=== PATIENT | female | born 1950 | race Caucasian/White ===

== ENCOUNTER 2016-05-24 11:03 | Emergency (ER) | payer MEDICARE, OTHER ==
[2016-05-24 11:59] LABS: HEMOGLOBIN 13.2 gm/dl (12.3-15.3); RED BLOOD COUNT 4.25 M/UL (4.00-5.10); WHITE BLOOD COUNT 10.2 K/UL (4.5-11.0)
[2016-05-24 12:20] LABS: BUN/CREATININE RATIO 40 (0-10)
[2016-09-11] MEDS ORDERED: LIPITOR TAB 2020 MG PO (08:55)
[2016-09-11] MEDS ORDERED: NORVASC 5 MG TAB5 MG PO (08:55)
[2016-09-11] MEDS ORDERED: CLARITIN10 M2 PO (08:56)
[2016-09-11] MEDS ORDERED: GABAPENTIN800 MG PO (08:57)
[2016-09-11] MEDS ORDERED: LISINOPRIL20 MG PO (08:57)
[2016-09-11] MEDS ORDERED: METFORMIN HCL500 MG PO (08:58)
[2016-09-11] MEDS ORDERED: PROBIOTIC1 EAC1 PO (08:59)
[2016-09-11] MEDS ORDERED: OMEPRAZOLE20 M1 PO (08:59)
[2016-09-11] MEDS ORDERED: RANITIDINE HCL300 MG PO (09:00)
[2016-09-11] MEDS ORDERED: ZOLOFT100 MG PO (09:02)
[2016-09-11] MEDS ORDERED: SERTRALINE HCL100 MG PO (09:07)
[2016-09-12] MEDS ORDERED: LEVAQUIN500 MG PO (04:29)
[2016-09-12] MEDS ORDERED: LORTAB 5-325 M1 EACH PO (04:30)
[2016-10-29] MEDS ORDERED: MELOXICAM15 MG PO (08:19)
[2016-10-29] MEDS ORDERED: LINZESS145 MCG PO (08:19)
[2016-10-29] MEDS ORDERED: OMEPRAZOLE20 M1 PO (08:20)
[2016-10-29] MEDS ORDERED: RANITIDINE HCL300 MG PO (08:20)
[2016-10-29] MEDS ORDERED: SERTRALINE HCL100 MG PO (08:21)
[2016-10-29] MEDS ORDERED: METFORMIN HCL1000 MG PO (08:22)
== END 2016-05-24 15:24 | disposition home or self-care (01) ==
LOC: ER1 11:03
PROVIDERS: Radiology Radiation Oncology
DX: K52.9 Noninfective gastroenteritis and colitis, unspecified (principal); E11.9 Type 2 diabetes mellitus without complications; I10 Essential (primary) hypertension; F17.200 Nicotine dependence, unspecified, uncomplicated
CPT/HCPCS: 36415; 80053; 81001; 82150; 83690; 85025; 96374; 96375; 99284; J2405; J7030

== ENCOUNTER → 2016-10-29 | Day surgery (SDC) | payer MEDICARE ==
[~2016-10-29] VITALS: Ht 160 cm; Wt 84.4 kg
[~2016-10-29] MED LIST: CLARITIN10 M2 PO; GABAPENTIN800 MG PO; LEVAQUIN500 MG PO; LINZESS145 MCG PO; LIPITOR TAB 2020 MG PO; LISINOPRIL20 MG PO; LORTAB 5-325 M1 EACH PO; MELOXICAM15 MG PO; METFORMIN HCL1000 MG PO; METFORMIN HCL500 MG PO; NORVASC 5 MG TAB5 MG PO; OMEPRAZOLE20 M1 PO; PROBIOTIC1 EAC1 PO; RANITIDINE HCL300 MG PO; SERTRALINE HCL100 MG PO; ZOLOFT100 MG PO
== END | disposition home or self-care (01) ==
LOC: OR 07:15
PROVIDERS: Internal Medicine Gastroenterology
PROC: 0DJD8ZZ Inspection of Lower Intestinal Tract, Via Natural or Artificial Opening Endoscopic (ICD-10-PCS; principal; 2016-10-29 10:45)
DX: Z12.11 Encounter for screening for malignant neoplasm of colon (principal); K56.69 Other intestinal obstruction; K57.30 Diverticulosis of large intestine without perforation or abscess without bleeding; K64.0 First degree hemorrhoids; I10 Essential (primary) hypertension; E11.9 Type 2 diabetes mellitus without complications; K21.9 Gastro-esophageal reflux disease without esophagitis; E66.8 Other obesity; Z68.34 Body mass index [BMI] 34.0-34.9, adult; Z87.891 Personal history of nicotine dependence; Z80.0 Family history of malignant neoplasm of digestive organs; Z88.0 Allergy status to penicillin; Z88.2 Allergy status to sulfonamides; Z88.5 Allergy status to narcotic agent; Z79.899 Other long term (current) drug therapy; Z90.49 Acquired absence of other specified parts of digestive tract; Z90.710 Acquired absence of both cervix and uterus
CPT/HCPCS: 82962; J7030

== ENCOUNTER → 2020-02-22 | Outpatient (CLI) | payer MEDICARE ==
[~2020-02-22] MED LIST changes: +AMLODIPINE BESYL5 MG PO; +CIPRO500 MG PO; +CLARITIN10 MG PO; +CONSTULOSE10 GM/15 M PO; +COZAAR 25MG TAB25 MG PO; +CYMBALTA60 MG PO; +ECOTRIN81 MG PO; +FLAGYL500 MG PO; +FLOVENT 220.1 GM/INH INH; +GLUCOPHAGE1000 MG PO; +GLUCOTROL XL10 MG PO; +HYDROCHLOROTHIA25 MG PO; +IMDUR ER TAB 3030 MG PO; +IMDUR ER TAB 6060 MG PO; +LABETALOL HCL200 MG PO; +LOPRESSOR 25 MG25 MG PO; +MAGOX 400400 MG PO; +METHOCARBAMOL750 MG PO; +NORVASC5 MG PO; +PRINIVIL5 MG PO; +PROAIR DIGIHAL90 MCG INH; +PROAIR HFA8.5 GM INH; +PROTONIX40 MG PO; +RANEXA500 MG PO; +ROBAXIN500 MG PO; +SINGULAIR10 MG PO; +TESSALON PERLE100 MG PO; +ZOFRAN4 MG PO
== END ==
LOC: EXRD 09:44
DX: M25.551 Pain in right hip (principal); M54.5 Low back pain; M51.36 Other intervertebral disc degeneration, lumbar region; M47.816 Spondylosis without myelopathy or radiculopathy, lumbar region
CPT/HCPCS: 72100; 73502

== ENCOUNTER → 2020-06-28 | Outpatient (CLI) | payer MEDICARE | LOC: MAMO 08:30 | DX: Z12.31 Encounter for screening mammogram for malignant neoplasm of breast (principal) | CPT/HCPCS: 77063; 77067 ==

== ENCOUNTER → 2020-10-06 | Outpatient (CLI) | payer OTHER | LOC: OPSV 10:49 | DX: R11.10 Vomiting, unspecified (principal) | CPT/HCPCS: 96360 ==

== ENCOUNTER 2021-08-14 18:01 | Emergency (ER) | payer OTHER ==
[2021-08-14 19:13] LABS: HEMOGLOBIN 10.8 gm/dl (12.3-15.3); RED BLOOD COUNT 4.3 M/UL (4.00-5.10); WHITE BLOOD COUNT 6.6 K/UL (4.5-11.0)
[2021-08-14] MEDS ORDERED: VOLTAREN ARTHRI20 GM TP (21:39)
== END 2021-08-14 22:00 | disposition home or self-care (01) ==
LOC: ER1 18:01
PROVIDERS: Physician Assistant Medical
DX: E11.65 Type 2 diabetes mellitus with hyperglycemia (principal); I48.91 Unspecified atrial fibrillation; E11.9 Type 2 diabetes mellitus without complications; Z90.89 Acquired absence of other organs; Z90.710 Acquired absence of both cervix and uterus; Z88.1 Allergy status to other antibiotic agents; Z88.0 Allergy status to penicillin; Z88.5 Allergy status to narcotic agent
CPT/HCPCS: 73552; 80053; 81001; 82009; 82962; 85025; 93005; 96374; 99285